=== PATIENT | female | born 1980 | race Two or more races ===

== ENCOUNTER 2025-01-17 05:30 | Day surgery (SDC) | payer MEDICAID, SELFPAY ==
--- NOTE | 2025-01-11 08:19 | ESHP_ITS ---
RE: ALBERTO CELIS : 1980 DATE OF ADMISSION: 01/20/2025 HISTORY OF PRESENT ILLNESS: This is a 44-year-old 5, para 4-0-1-4 with endometrial polyp and abnormal uterine bleeding who presents for removal of polyp and endometrial ablation. MEDICATIONS: Ferrous sulfate 325 mg 1 p.o. daily. PAST MEDICAL HISTORY: Iron deficiency anemia, blood transfusion, endometrial polyp. PAST SURGICAL HISTORY: delivery 1999, 2003, 2006, 2011, and 2015. FAMILY HISTORY: Denies. REVIEW OF SYSTEMS: Denies any chest pain, palpitations, cough, fever, flank pain, shortness of breath, or lower extremity pain. PHYSICAL EXAMINATION: VITAL SIGNS: Blood pressure 122/74, heart rate 88, respirations 18, temperature is 98.6. HEENT: Oropharynx and sclerae are clear. LUNGS: Clear to auscultation bilaterally. HEART: Regular rate and rhythm. ABDOMEN: Old Pfannenstiel scar noted, nontender. EXTREMITIES: Nontender. SKIN: No gross rashes or lesions. NEUROLOGIC: No focal deficit. ASSESSMENT: Endometrial polyp, abnormal uterine bleeding. PLAN: Hysteroscopy, fractional dilatation and curettage, MyoSure removal of endometrial polyp, and NovaSure endometrial ablation. Patient was made aware of the risks, complications, alternative benefits of the proposed procedure and she agrees. She is aware of the risk of injury to bowel, bladder, uterus, adjacent organs, pulmonary embolism, deep vein thrombosis, pelvic infection, reoperation to repair injury to internal organs, anesthesia complications, the possibility that a laparotomy needs to be performed to repair organs or control bleeding, and the possibility that procedure is not able to be completed due to severe adhesions or technical difficulties. The patient verbalized understanding and she agrees to proceed with the procedure with an understanding of the risks and complications. DT: 07:33:01 TT: 08:18:00 Ref: [id number] - TID: [id number] MTDD
[2025-01-16 08:55] VITALS: BMI 33.3
[2025-01-16 10:27] LABS: Basophils # (Auto) 0.1 Thou/mm3 (0.0-0.2); Basophils % (Auto) 1 % (0-2.5); Eosinophils # (Auto) 0.2 Thou/mm3 (0.0-0.5); Eosinophils % (Auto) 2 % (0-10); Hematocrit 37.4 % (36.0-46.0); Hemoglobin 11.4 g/dL (12.0-16.0); Immature Granulocytes Auto 0.03 Thou/mm3 (0.00-0.00); Lymphocytes # (Auto) 2.2 Thou/mm3 (1.0-4.8); Lymphocytes % (Auto) 23 % (10-50); Mean Corpuscular HGB Conc 30.5 g/dl (31.0-37.0); Mean Corpuscular Hemoglobin 22.9 pg (25.0-35.0); Mean Corpuscular Volume 75 fL (80-100); Monocytes # (Auto) 0.5 Thou/mm3 (0.0-0.8); Monocytes % (Auto) 5 % (0-12); Neutrophils # (Auto) 6.4 Thou/mm3 (1.8-7.7); Neutrophils % (Auto) 69 % (37-80); Nucleated Red Blood Cell # 0.00 Thou/mm3 (0.00-0.00); Nucleated Red Blood Cell % 0 /100 WBC (0); Platelet Count 319 Thou/mm3 (140-440); RDW Standard Deviation 58.8 fL (36.4-46.3); Red Blood Count 4.97 Miln/mm3 (4.00-5.20); White Blood Count 9.4 Thou/mm3 (3.6-11.0)
[2025-01-16 10:44] LABS: INR 1.0 (0.9-1.3); Partial Thromboplastin Time 24.4 Seconds (22.0-36.0); Prothrombin Time 10.6 Seconds (9.0-12.2)
[2025-01-16 11:02] LABS: Alanine Aminotransferase 9 U/L (10-49); Albumin, Serum 4.5 gm/dL (3.5-5.0); Albumin/Globulin Ratio 1.7 (1.2-2.2); Alkaline Phosphatase 72 U/L (46-116); Anion Gap 10 (7-16); Aspartate Amino Transferase 18 U/L (0-34); BUN/Creatinine Ratio 22 Ratio (12-20); Beta HCG,Quantitative < 1 mIU/mL (<5.0); Bilirubin,Total 0.8 mg/dL (0.3-1.2); Blood Urea Nitrogen 13 mg/dL (9-23); Calcium 8.8 mg/dL (8.3-10.6); Calcium (Corrected) 8.8 mg/dL (8.5-10.1); Carbon Dioxide 28.4 mMol/L (20.0-31.0); Chloride 103 mMol/L (98-107); Creatinine (Component) 0.6 mg/dL (0.6-1.3); Estimated Creatinine Clearance 121.2 mL/min (>60); Globulin 2.7 gm/dL (2.3-3.5); Glucose 97 mg/dL (74-106); Osmolality,Calculated 281 (275-295); Potassium 4.0 mMol/L (3.4-5.1); Sodium 141 mMol/L (136-145); Total Protein 7.2 gm/dL (5.7-8.2); eGFR > 60 See Note
[2025-01-17] VITALS (7 sets, daily range): BP systolic 105–117; BP diastolic 65–81; PULSE 60–73; RESP 12–20; TEMP 36.1–36.6; O2SAT 96–100; BMI 33.3
--- NOTE | 2025-01-17 07:20 | CHAP ---
Prayed with patient before procedure.
--- NOTE | 2025-01-17 08:11 | ESOP_ITS ---
Operative Note - INHALATION THERAPY TEACHER Procedure Date of procedure: 01/17/25 Procedure Performed: Hysteroscopy Myosure Removal Of Endometrial Polyp Fractional Dilation and Currettage Novasure Endometrial Ablation. Indication: Abnormal Uterine Bleeding Endometrial Polyp Pre-Op diagnosis: Abnormal Uterine Bleeding Endometrial Polyp Post-Op diagnosis: Abnormal Uterine Bleeding Endometrial Polyp Anesthesia type: General Procedure description: After proper informed consent was obtained and the patient made aware of the risk complications alternatives and benefits of the proposed procedure she was taken to the operating room where she underwent induction of general anesthesia. ? She was placed in the dorsal lithotomy position and prepped and draped the usual sterile fashion.? A timeout was performed.? A bivalve speculum was inserted.? A single-tooth tenaculum was used to grasp the anterior lip of the cervix.? The uterine cavity was sounded to 10 cm.?The cervix was measured at 4.0 cm. The cervix was dilated to accommodate the 5.5 mm Omni hysteroscope.? Using the Aquilex system and normal saline as the distending media the hysteroscopy was performed and a 5 x 5 mm endometrial polyp was seen on the posterior uterine cavity.? Using the MyoSure Reach device the polypectomy was performed and specimen sent to pathology. The fluid deficit at the end of the MyoSure procedure was 40 cc.? The endocervix was curetted with the Kevorkian curette and specimen sent to pathology.? The uterine cavity was curetted with a 5 mm curette and specimen sent to pathology.? The NovaSure catheter was plugged into the controller.? It went through its purge cycle.? The array was deployed and was found to be complete and intact with the width meter working properly. The Novasure catheter was appropriately seated in the uterine cavity.? The cavity length was 6.0 cm, ?the cavity width was 4.3 cm the power setting was 142 W.? The carbon dioxide cavity integrity assessment test was performed.? The uterine cavity was intact.? The controller was enabled and the ablation was performed fo r a total of 102 seconds before the controller shut off.? The array was retracted into the sheath and the catheter was removed from the uterine cavity.? The array was redeployed and found to be complete and intact.? There was bleeding at the anterior lip of the cervix at the site of the tenaculum and using the Bovie cautery hemostasis was achieved.? There was no bleeding at the end of the procedure.? All instruments were removed from the vagina.? She was reversed from general anesthesia in supine position and transferred to the cover room in stable condition.? She tolerated the procedure well.? Counts were correct.? I discussed with the patient's the nature of her condition, the intraoperative findings, the expectation for recovery, all questions answered Specimen: other (1. Endometrial Polyp 2. Endocervical Curettings 3. Endometrial Curettings. ) Estimated blood loss (ml): 3 Findings: Uterine cavity sounded to 10.0 cm anteverted Cervical length 4.0 cm. Uterine cavity length 6.0 cm. Uterine cavity width 4.3 cm Power setting 142 W Duration of ablation 102 seconds Fluids observed hysteroscopically 40 cc normal saline Complications: none Surgical staff Operation Date: 01/17/25 07:30 Case Staff DIRECT MARKETING EXECUTIVE: Boom Chew Dr , Surgeon Diagnosis Discharge Diagnosis (1) Status post endometrial ablation: Status: Acute (2) Abnormal uterine bleeding due to endometrial polyp: Status: Acute Problem List Completed Was Problem List Reviewed/Reconciled?: Yes
--- NOTE | 2025-01-17 08:13 | SUR.PHASEI ---
0813: Pt. wakes to name then drifts back to sleep, vitals stable, breathing unlabored, no complaint of pain or nausea, peripad in place CDI, no active bleed noted, report received from Cheikh SINCLAIR and Peyton MCGRATH.
--- NOTE | 2025-01-17 09:07 | SUR.PHASEII ---
0907: Pt. AAOx4, vitals stable, breathing unlabored, no complaint of pain or nausea, peripad in place CDI, no active bleed noted, pt. tolerated sips of water well, pt. ambulated to wheelchair with steady gait and no assist, no complications. Gave discharge instructions to the pt. and her ride using jewel inspector Andreas, both verbalized understanding and had no further questions. Pt. left with all personal belongings.
== END 2025-01-17 09:07 | disposition home or self-care (01) ==
PROVIDERS: PCP Physician Assistant; Referring Provider Specialist; Visit Provider Specialist
PROC: 0UJD8ZZ Inspection of Uterus and Cervix, Via Natural or Artificial Opening Endoscopic (ICD-10-PCS; CPT 58555; principal; 2025-01-17 07:30)
DX: N84.0 Polyp of corpus uteri (principal)
CPT/HCPCS: 58563; 36415; 80053; 84702; 85025; 85610; 85730; 86850; 86900; 86901; A4217; A4649; J0131; J0690; J1885; J2250; J2598; J2704; J3010; J3490; J1596